=== PATIENT | female | born 1970 | race Caucasian/White ===

== ENCOUNTER 2016-05-17 21:41 | Emergency (ER) | payer BC ==
--- NOTE | 2016-05-17 22:59 | EDM.PDOC ---
ED HISTORY OF PRESENT ILLNESS - General Chief Complaint: Respiratory Problem Stated Complaint: COUGH SOB Time Seen by Provider: 05/17/16 22:26 Source of Information: Reports: Patient, RN notes reviewed History Limitations: Reports: No limitations - History of Present Illness INITIAL COMMENTS - FREE TEXT/NARRATIVE: The patient states that she has had a cough productive of yellowish sputum, with possible wheezing, since 05/05/2016. She developed dyspnea yesterday, worse today, along with dyspnea on exertion. She has had nausea, but no vomiting, constipation, or diarrhea. No recent fever. Her chest is sore when she coughs. No palpitations. She reports nasal congestion, postnasal drip, and a sore throat. She is taking [id number] Tylenol Cold/sinus, which has not helped. No prior similar symptoms. She was seen by her PCP, Marilee Torres, on 05/12/2016. No tests were performed , however, the patient was diagnosed with "flu" and prescribed doxycycline 100 mg BID along with a codeine cough syrup. This did not help, therefore she was seen again in the clinic on 05/13/2016. Again, no tests were performed, but she states that she was given an injection of some medicine, likely a steroid, and prescribed Ventolin MDI, that she has been taking every 4-6 hours. - Related Data Allergies/ADRs: Allergies Allergy/AdvReac Type Severity Reaction Status Date / Time No Known Allergies Allergy Verified 04/26/15 13:58 Home Meds: Home Meds Acetaminophen [Tylenol Extra Strength] 500 mg PO TID PRN 09/29/14 [History] Aspirin [[place] Aspirin] 81 mg PO DAILY 09/29/14 [History] Clopidogrel [Plavix] 75 mg PO DAILY 09/29/14 [History] Isosorbide Mononitrate [Imdur] 30 mg PO DAILY 09/29/14 [History] Levothyroxine [Synthroid] 88 mcg PO ACBREAKFAST 09/29/14 [History] Levothyroxine [Synthroid] 100 mcg PO Q48H 09/29/14 [History] Metoprolol Tartrate 25 mg PO BID 09/29/14 [History] Nitroglycerin [Nitrostat] 0.4 mg SL ASDIRECTED PRN 09/29/14 [History] Simethicone 125 mg PO DAILY PRN 09/29/14 [History] Rosuvastatin [Crestor] 10 mg PO DAILY 04/26/15 [History] Cholecalciferol (Vitamin D3) [Vitamin D3] 3,000 units PO DAILY 05/17/16 [History ] Vitamin B 12 1,000 mcg PO DAILY 05/17/16 [History] Levofloxacin [Levaquin] 500 mg PO Q24H #4 tablet 05/18/16 [Rx] Past Medical History Cardiovascular History: Reports: CAD, High cholesterol, Hypertension Genitourinary History: Reports: Urinary incontinence Musculoskeletal History: Reports: Arthritis (lower spine) Endocrine/Metabolic History: Reports: Hypothyroidism - Past Surgical History HEENT Surgical History: Reports: LASIK (bilateral), Tonsillectomy (16 years old) Cardiovascular Surgical History: Reports: Coronary artery stent (x 1, 09/07/2014) GI Surgical History: Reports: Bariatric procedure (04/21/2016) Female Surgical History: Reports: Hysterectomy (Apr 2009), Salpingo- oophorectomy (Apr 2009), Tubal ligation Social & Family History - Tobacco Use Smoking Status *Q: Former Smoker Tobacco Use Within Last Twelve Months: No Years of Tobacco use: 30 Packs/Tins Daily: 0.5 Used Tobacco, but Quit: Yes Month Tobacco Last Used: Quit 03/02/2014 - Caffeine Use Caffeine Use: Reports: Coffee Other Caffeine Use: decaf - Alcohol Use Alcohol Use History: Yes Alcohol Use Frequency: Rarely - Recreational Drug Use Recreational Drug Use: No - Living Situation & Occupation Living situation: Reports: , with spouse, with family (Daughter and 2 grandchildren) ED ROS GENERAL - Review of Systems Review Of Systems: See Below Constitutional: Reports: no symptoms HEENT: Reports: No symptoms, Rhinitis (as per the HPI) Respiratory: Reports: Shortness of Breath (as per the HPI), Wheezing (as per the HPI), Cough (as per the HPI), Sputum (as per the HPI) Cardiovascular: Reports: Dyspnea on exertion (as per the HPI) Endocrine: Reports: no symptoms GI/Abdominal: Reports: Nausea (as per the HPI). Denies: Constipation, Diarrhea , Vomiting : Reports: no symptoms Musculoskeletal: Reports: no symptoms Skin: Reports: no symptoms Neurological: Reports: No Symptoms Hematologic/Lymphatic: Reports: no symptoms Immunologic: Reports: no symptoms ED EXAM, GENERAL - Physical Exam Exam: See Below Exam Limited By: No limitations General Appearance: alert, WD/WN, no apparent distress Eye Exam: bilateral eye: EOMI, normal inspection Ears: normal external exam, normal canal, hearing grossly normal, normal TMs Ear Exam: bilateral ear: auricle normal, canal normal, TM normal Nose: normal inspection, no blood, other (Bilateral nasal mucosal edema) Throat/Mouth: Normal inspection, Normal lips, Normal teeth, Normal gums, Normal oropharynx, Normal voice, No airway compromise Head: atraumatic, normocephalic Neck: normal inspection, supple, non-tender, full range of motion. No: lymphadenopathy (L), lymphadenopathy (R) Respiratory/Chest: no respiratory distress, no accessory muscle use, decreased breath sounds, wheezing (Throughout all lung jaramillo), prolonged expiration. No : crackles, rhonchi Cardiovascular: normal peripheral pulses, regular rate, rhythm, no edema, no gallop, no JVD, no murmur, no rub Peripheral Pulses: 4+: radial (L), radial (R) GI/Abdominal: normal bowel sounds, soft, non tender, no organomegaly, no distention, no abnormal bruit, no mass, other (Obese) Back Exam: normal inspection, full range of motion, NT Extremities: normal inspection, normal range of motion, non-tender, normal capillary refill, no pedal edema Neurological: alert, oriented, normal cognition, no motor/sensory deficits Psychiatric: normal affect Skin Exam: Warm, Dry, Intact, Normal color, No rash Lymphatic: no adenopathy Course - Vital Signs Last Recorded V/S: Last Vital Signs Temp 36.5 C 05/17/16 22:07 Pulse 85 05/18/16 03:30 Resp 17 05/18/16 03:30 BP 141/73 H 05/18/16 03:30 Pulse Ox 94 L 05/18/16 03:30 - Orders/Labs/Meds Orders: Active Orders 24 hr Category Date Time Status Ang Chest [CT] Stat Exams 05/18/16 00:52 Taken Chest 2V [CR] Stat Exams 05/17/16 22:55 Taken CULTURE BLOOD [BC] Stat Lab 05/17/16 23:10 Received CULTURE BLOOD [BC] Stat Lab 05/17/16 23:25 Results Labs: Laboratory Tests 05/17/16 05/17/16 05/17/16 Range/Units 23:10 23:10 23:10 WBC 8.35 (3.98-10.04) K/mm3 RBC 3.82 L (3.98-5.22) M/mm3 Hgb 12.1 (11.2-15.7) gm/L Hct 34.9 (34.1-44.9) % MCV 91.4 (79.4-94.8) fl MCH 31.7 (25.6-32.2) pg MCHC 34.7 (32.2-35.5) g/dl RDW Std Deviation 43.3 (36.4-46.3) fL Plt Count 304 (182-369) K/mm3 MPV 10.7 (9.4-12.3) fl Neutrophils % (Manual) 63 H (40-60) % Band Neutrophils % 6 (0-10) % Lymphocytes % (Manual) 15 L (20-40) % Atypical Lymphs % 2 % Monocytes % (Manual) 5 (2-10) % Eosinophils % (Manual) 9 H (0.7-5.8) % Basophils % (Manual) 0 L (0.1-1.2) Toxic Granulation Few Platelet Estimate Adequate Plt Morphology Comment Normal Polychromasia Few Anisocytosis 1+ slight Spherocytes Few Stomatocytes Few Acanthocytes (Spur) Few Rouleaux Few RBC Morph Comment Not Reportable PT 11.8 (8.0-13.0) SECONDS INR 1.08 APTT 28 (22-36) SECONDS D-Dimer, Quantitative 1.19 H (0.19-0.59) mg/L Sodium 137 (136-145) mEq/L Potassium 3.3 L (3.5-5.1) mEq/L Chloride 99 (98-107) mEq/L Carbon Dioxide 26 (21-32) mEq/L Anion Gap 15.3 H (5-15) BUN 6 L (7-18) mg/dL Creatinine 0.5 L (0.55-1.02) mg/dL Est Cr Clr Drug Dosing 138.81 mL/min Estimated GFR (MDRD) > 60 (>60) mL/min BUN/Creatinine Ratio 12.0 L (14-18) Glucose 106 (74-106) mg/dL Calcium 9.8 (8.5-10.1) mg/dL Total Bilirubin 0.9 (0.2-1.0) mg/dL AST 15 (15-37) U/L ALT 23 (14-59) U/L Alkaline Phosphatase 110 (46-116) U/L C-Reactive Protein 2.0 H* (<1.0) mg/dL B-Natriuretic Peptide (0-100) pg/mL Total Protein 7.3 (6.4-8.2) g/dl Albumin 4.3 (3.4-5.0) g/dl Globulin 3.0 gm/dL Albumin/Globulin Ratio 1.4 (1-2) 05/17/16 Range/Units 23:10 WBC (3.98-10.04) K/mm3 RBC (3.98-5.22) M/mm3 Hgb (11.2-15.7) gm/L Hct (34.1-44.9) % MCV (79.4-94.8) fl MCH (25.6-32.2) pg MCHC (32.2-35.5) g/dl RDW Std Deviation (36.4-46.3) fL Plt Count (182-369) K/mm3 MPV (9.4-12.3) fl Neutrophils % (Manual) (40-60) % Band Neutrophils % (0-10) % Lymphocytes % (Manual) (20-40) % Atypical Lymphs % % Monocytes % (Manual) (2-10) % Eosinophils % (Manual) (0.7-5.8) % Basophils % (Manual) (0.1-1.2) Toxic Granulation Platelet Estimate Plt Morphology Comment Polychromasia Anisocytosis Spherocytes Stomatocytes Acanthocytes (Spur) Rouleaux RBC Morph Comment PT (8.0-13.0) SECONDS INR APTT (22-36) SECONDS D-Dimer, Quantitative (0.19-0.59) mg/L Sodium (136-145) mEq/L Potassium (3.5-5.1) mEq/L Chloride (98-107) mEq/L Carbon Dioxide (21-32) mEq/L Anion Gap (5-15) BUN (7-18) mg/dL Creatinine (0.55-1.02) mg/dL Est Cr Clr Drug Dosing mL/min Estimated GFR (MDRD) (>60) mL/min BUN/Creatinine Ratio (14-18) Glucose (74-106) mg/dL Calcium (8.5-10.1) mg/dL Total Bilirubin (0.2-1.0) mg/dL AST (15-37) U/L ALT (14-59) U/L Alkaline Phosphatase (46-116) U/L C-Reactive Protein (<1.0) mg/dL B-Natriuretic Peptide < 15 (0-100) pg/mL Total Protein (6.4-8.2) g/dl Albumin (3.4-5.0) g/dl Globulin gm/dL Albumin/Globulin Ratio (1-2) Meds: Medications Discontinued Medications Generic Name Dose Route Start Last Admin Trade Name Freq PRN Reason Stop Dose Admin Sodium Chloride 1,000 mls @ 150 mls/hr 05/18/16 01:00 05/18/16 01:47 Normal Saline IV 150 mls/hr ASDIRECTED LISA Administration Sodium Chloride 100 mls @ 60 mls/hr 05/18/16 01:00 05/18/16 01:17 Normal Saline IV 60 mls/hr ASDIRECTED LISA Administration Ibuprofen 600 mg 05/18/16 03:38 05/18/16 03:44 Motrin PO 05/18/16 03:39 Not Given ONETIME ONE Iopamidol 100 ml 05/18/16 00:55 05/18/16 01:16 Isovue-370 (76%) IVPUSH 05/18/16 00:56 100 ml ONETIME ONE Administration Iopamidol 50 ml 05/18/16 00:55 05/18/16 01:16 Isovue-370 (76%) IVPUSH 05/18/16 00:56 30 ml ONETIME ONE Administration Levofloxacin 750 mg 05/18/16 03:37 05/18/16 03:44 Levaquin PO 05/18/16 03:38 750 mg ONETIME STA Administration Sodium Chloride 10 ml 05/18/16 00:55 05/18/16 01:16 Saline Flush FLUSH 05/18/16 00:56 10 ml ONETIME ONE Administration - Radiology Interpretation Free Text/Narrative:: Two-view chest radiograph appears to be grossly normal. Cardiac silhouette is within normal limits. No pulmonary vascular congestion. No pleural effusions. No focal infiltrate. No pneumothorax. Formal read per the Radiologist pending. CT angiogram of the chest is read by [facility] as: 1. No central or proximal segmental pulmonary embolus. Cannot evaluate the more distal branches. Please see comment above. 2. Dense atherosclerotic calcification of the LAD, and atherosclerotic calcification of the mitral valve annulus, significant given patient's age. 3. Findings consistent with multifocal bronchopneumonia. 4. Mediastinal and bilateral hilar lymphadenopathy. - Re-Assessments/Exams Free Text/Narrative Re-Assessment/Exam: 05/18/16 00:56 Test results discussed with the patient. The patient's workup is unremarkable, with the exception of a D-dimer elevated at 1.19. I cannot rule out a PE as the cause of many of the patient's symptoms, and I am therefore recommending a CT angiogram of the chest. The patient is agreeable. 05/18/16 03:48 CT angiogram results discussed with the patient. The CT scan has findings consistent with multifocal bronchopneumonia. Unfortunately, the patient does not have clinical features consistent with pneumonia, such as an elevated WBC count or elevated CRP. This means that the tree in bud infiltrates seen on the CT scan MAY NOT be due to pneumonia. If that is the case, we would expect that the patient does not get better despite appropriate antibiotic treatment. Alternatively, the patient could get better despite treatment. It is for this reason that I am recommending that the patient have a followup CT scan of her chest in 4-6 weeks, to make sure that the pulmonary abnormalities have resolved. If they have not, the patient would require bronchoscopy. For today' s purposes, I will start the patient on Levaquin 750 mg daily for 5 days. Also mentioned on the CT scan is dense atherosclerotic calcification of the LAD and atherosclerotic ossification of the mitral valve annulus. The patient herself was not aware of that, however, the patient has known coronary artery disease, and her [employer] may be aware of the atherosclerotic changes. I am recommending that the patient followup with her [employer] to discuss this. The patient may benefit from annual echocardiograms. Departure - Departure Time of Disposition: 03:52 Disposition: Home, Self-Care 01 Condition: fair Clinical Impression: Bronchopneumonia Prescriptions: Levofloxacin [Levaquin] 500 mg PO Q24H #4 tablet Instructions: Community-Acquired Pneumonia, Adult, [id number] Referrals: Marilee Torres PA-C [Primary Care Provider] - Forms: ED Department Discharge Additional Instructions: You were seen in the emergency room tonight for a cough, wheezing, and shortness of breath at rest and with exertion. Workup in the ER included blood work, an influenza swab, a chest x-ray, and a CT angiogram of your chest. Your blood work was normal, however, the CT angiogram of your chest indicates that you have multifocal bronchopneumonia. You have been started on the antibiotic Levaquin. Take one tablet every day, as prescribed. Finish the entire prescription, unless told otherwise by your doctor. The CT scan also indicated dense arthrosclerotic calcification of the LAD ( coronary artery) and atherosclerotic calcification of the mitral valve annulus. Please discuss these findings with your [employer]. We advise a repeat CT scan of your chest in 4-6 weeks to make sure that the lung findings have resolved. If any other problems, please do not hesitate to return to the ER. - My Orders Last 24 Hours: My Active Orders 05/17/16 22:55 Chest 2V [CR] Stat 05/17/16 23:10 CULTURE BLOOD [BC] Stat 05/17/16 23:25 CULTURE BLOOD [BC] Stat 05/18/16 00:52 Ang Chest [CT] Stat - Assessment/Plan Last 24 Hours: My Active Orders 05/17/16 22:55 Chest 2V [CR] Stat 05/17/16 23:10 CULTURE BLOOD [BC] Stat 05/17/16 23:25 CULTURE BLOOD [BC] Stat 05/18/16 00:52 Ang Chest [CT] Stat
[2016-05-18] MEDS ORDERED: Iopamidol 755 Mg/ML 100 ML Bottle IVPUSH ONE (00:55)
[2016-05-18] MEDS ORDERED: Sodium Chloride 0.9% 10 ML Syringe FLUSH ONE (00:55)
[2016-05-18] MEDS ORDERED: Iopamidol 755 MG/ML 50 ML Bottle IVPUSH ONE (00:55)
[2016-05-18] MEDS ORDERED: Sodium Chloride 0.9% 1,000 ML IV SCH (01:00)
[2016-05-18] MEDS ORDERED: Sodium Chloride 0.9% 100 ML IV SCH (01:00)
[2016-05-18] MEDS ORDERED: Levofloxacin 750 MG Tab PO STA (03:37)
[2016-05-18] MEDS ORDERED: Ibuprofen 600 MG Tab PO ONE (03:38)
[2016-05-18 05:52] VITALS: BP 141/73
--- NOTE | 2016-05-19 08:00 | CR ---
Chest: Two views of the chest were obtained. Comparison: Previous chest x-ray 04/26/15. Heart size and mediastinum are normal. Lungs are clear. Degenerative disc space narrowing noted throughout the spine. Bony structures show nothing acute. Impression: 1. Incidental findings. Nothing acute identified on two-view chest x-ray. Diagnostic code #2
--- NOTE | 2016-05-19 08:11 | CT ---
CT chest Technique: Multiple axial sections through the chest were obtained. Intravenous contrast was utilized. Study has been performed as a pulmonary angiogram protocol. Delayed images also obtained through the pulmonary arteries. Comparison: Previous chest x-ray performed on 05/17/16. Findings: Pulmonary arteries are suboptimally opacified. No filling defects seen within the main or segmental branches. Smaller subsegmental pulmonary emboli could be missed. Mildly prominent lymph nodes seen within the mediastinum and within both hilar regions. Some of the lymph nodes appear calcified. Findings are felt to be residual from previous granulomatous exposure. Significant coronary artery calcification is seen. Mitral annulus calcification is also noted. Small portion of visualized upper abdominal structures show previous abdominal surgery within the stomach. Lung window setting show mild interstitial change within the left lung most prominent within the left lung base. No alveolar type densities are seen. Minimal scarring or atelectasis seen within the right middle lobe. Bone window settings appear within normal limits for the patient's age. Impression: 1. Suboptimal opacifications of the pulmonary arteries. No pulmonary embolism seen within the segmental or main pulmonary arteries. Smaller subsegmental pulmonary embolism could be missed. 2. Mildly prominent lymph nodes within the mediastinum and hilar regions some showing calcification. Findings felt compatible with previous granulomatous exposure. 3. Coronary artery calcification which is abnormal in amount for the patient's age. Incidental mitral annulus calcification also noted. 4. Interstitial changes most prominent within the left lung base most likely due to multifocal bronchopneumonia. Please correlate if patient has infectious symptoms. Agree with preliminary report issued by [facility] (preliminary [facility] report generated on 05/18/16, 3:06 AM Central Time) Diagnostic code #3
== END 2016-05-18 03:30 | disposition home or self-care (01) ==
LOC: JD.ED 21:41 → SUPCPDRO 21:41 → JD.ED 05-18 03:30
DX: J18.0 Bronchopneumonia, unspecified organism (principal); R94.8 Abnormal results of function studies of other organs and systems; I25.10 Atherosclerotic heart disease of native coronary artery without angina pectoris; E78.00 Pure hypercholesterolemia, unspecified; I10 Essential (primary) hypertension; E03.9 Hypothyroidism, unspecified; Z87.891 Personal history of nicotine dependence; Z79.82 Long term (current) use of aspirin; Z79.899 Other long term (current) drug therapy; Z95.5 Presence of coronary angioplasty implant and graft
CPT/HCPCS: 36415; 71020; 71275; 80053; 83880; 85025; 85379; 85610; 85730; 86140; 87040; 87804; A9270; J7030; J7040; J7050; Q9967; 96360; 96361; 99284; 99285-25

== ENCOUNTER 2016-05-23 17:06 | Emergency (ER) | payer BC ==
[2016-05-23 17:37] VITALS: BP 137/76
--- NOTE | 2016-05-23 19:23 | EDM.PDOC ---
ED HISTORY OF PRESENT ILLNESS - General Chief Complaint: Respiratory Problem Stated Complaint: SENT BY [facility] UNABLE TO START IV Time Seen by Provider: 05/23/16 18:57 Source of Information: Reports: Patient, RN notes reviewed - History of Present Illness INITIAL COMMENTS - FREE TEXT/NARRATIVE: 46 year old female sent over from clinic with concern for DVT, unable to get an IV at the clinic so sent here for possible pul angiogram. She has been ill with a productive cough for several wks, evaluated here 6 days ago, had a normal CXR but CT pul angio showed L interstitial findings consistent with bronchial pneumonia. Has been on levaquin for the last 5 days. Cough is still productive, deep breathing makes her cough. Some continued dyspnea. No recent fever or chills. She had a sore throat but that is gone. She does not have leg pain, swelling, or pain with deep breathing. No major risk factors for DVT at this time. - Related Data Allergies/ADRs: Allergies Allergy/AdvReac Type Severity Reaction Status Date / Time No Known Allergies Allergy Verified 05/23/16 17:31 Home Meds: Home Meds Acetaminophen [Tylenol Extra Strength] 500 mg PO TID PRN 09/29/14 [History] Aspirin [[place] Aspirin] 81 mg PO DAILY 09/29/14 [History] Clopidogrel [Plavix] 75 mg PO DAILY 09/29/14 [History] Isosorbide Mononitrate [Imdur] 30 mg PO DAILY 09/29/14 [History] Levothyroxine [Synthroid] 88 mcg PO ACBREAKFAST 09/29/14 [History] Levothyroxine [Synthroid] 100 mcg PO Q48H 09/29/14 [History] Metoprolol Tartrate 25 mg PO BID 09/29/14 [History] Nitroglycerin [Nitrostat] 0.4 mg SL ASDIRECTED PRN 09/29/14 [History] Simethicone 125 mg PO DAILY PRN 09/29/14 [History] Rosuvastatin [Crestor] 10 mg PO DAILY 04/26/15 [History] Cholecalciferol (Vitamin D3) [Vitamin D3] 3,000 units PO DAILY 05/17/16 [History ] Vitamin B 12 1,000 mcg PO DAILY 05/17/16 [History] Levofloxacin [Levaquin] 500 mg PO Q24H #4 tablet 05/18/16 [Rx] Levofloxacin [Levaquin] 500 mg PO Q24H #7 tablet 05/23/16 [Rx] Past Medical History Cardiovascular History: Reports: CAD, High cholesterol, Hypertension Respiratory History: Reports: Other (see below) Other Respiratory History: bronchial pneumonia Genitourinary History: Reports: Urinary incontinence Musculoskeletal History: Reports: Arthritis Endocrine/Metabolic History: Reports: Hypothyroidism - Past Surgical History HEENT Surgical History: Reports: LASIK, Tonsillectomy Cardiovascular Surgical History: Reports: Coronary artery stent GI Surgical History: Reports: Bariatric procedure Female Surgical History: Reports: Hysterectomy, Salpingo-oophorectomy, Tubal ligation Social & Family History - Tobacco Use Smoking Status *Q: Never Smoker Years of Tobacco use: 30 Packs/Tins Daily: 0.5 Used Tobacco, but Quit: Yes Month Tobacco Last Used: Quit 03/02/2014 - Caffeine Use Caffeine Use: Reports: Coffee Other Caffeine Use: decaf - Recreational Drug Use Recreational Drug Use: No - Living Situation & Occupation Living situation: Reports: , with spouse, with family (Daughter and 2 grandchildren) ED ROS GENERAL - Review of Systems Review Of Systems: See Below Constitutional: Reports: fever (perhaps many days ago. ), chills (many days ago) HEENT: Reports: Throat pain (gone) Respiratory: Reports: Shortness of Breath, Cough, Sputum. Denies: Pleuritic Chest Pain, Hemoptysis Cardiovascular: Reports: Chest pain (wuith coughing) GI/Abdominal: Denies: Abdominal pain, Nausea, Vomiting Musculoskeletal: Reports: no symptoms Skin: Reports: no symptoms Neurological: Reports: No Symptoms ED EXAM, GENERAL - Physical Exam Exam: See Below General Appearance: alert, no apparent distress, other (frequent nonprod cough) Eye Exam: bilateral eye: PERRL Throat/Mouth: Normal inspection Head: atraumatic. No: facial swelling Neck: supple, full range of motion. No: tender midline Respiratory/Chest: no respiratory distress, lungs clear, normal breath sounds, chest non-tender Cardiovascular: regular rate, rhythm GI/Abdominal: soft, non tender Back Exam: vertebral tenderness (mid thoracic back and low mid and L lower back , no bruising or swelling visible). No: CVA tenderness (L), CVA tenderness (R) Neurological: no motor/sensory deficits Skin Exam: Warm, Dry, Normal color. No: Erythema Course - Vital Signs Last Recorded V/S: Last Vital Signs Temp 97.9 F 05/23/16 17:31 Pulse 83 05/23/16 17:31 Resp 20 05/23/16 17:31 BP 137/76 05/23/16 17:31 Pulse Ox 95 05/23/16 17:31 - Orders/Labs/Meds Orders: Active Orders 24 hr Category Date Time Status CXR [Chest 2V] [CR] Stat Exams 05/23/16 19:13 Taken Labs: Laboratory Tests 05/23/16 Range/Units 19:08 D-Dimer, Quantitative 1.02 H (0.19-0.59) mg/L - Re-Assessments/Exams Free Text/Narrative Re-Assessment/Exam: 05/23/16 19:57 WBC done at [facility] today was in the 7,000 range, CXR today shows coarse perihilar markings, especially R lower lung field. D dimer today is 1.02. D Dimer 6 days ago was 1.19. CT pul angio than was neg for PE, positive for bronchial pneumonia. I have gone over these findings with patient. She does not have leg swelling, pain, other risk factors or clinical findings for PE at this time. She has clinical evidence today and hx of bronchial pneumonia. She does not need a CT today to R/O PE. Patient is in agreement with that. she has had only 5 days of levaquin, discharge instr. as documented. Departure - Departure Time of Disposition: 19:55 Disposition: Home, Self-Care 01 Condition: fair Clinical Impression: Bronchial pneumonia Prescriptions: Levofloxacin [Levaquin] 500 mg PO Q24H #7 tablet Instructions: Community-Acquired Pneumonia, Adult, [id number] Referrals: Marilee Torres PA-C [Primary Care Provider] - Forms: ED Department Discharge Additional Instructions: continue albuteral inhaler q 4 to 6 hr as needed, vaporizer or steam as needed, levaquin 500 mt daily for another 7 days, symptoms should gradually start getting better over the next 3 to 5 days, follow up clinic in about 5 to 7 days if not significantly better, return to ED as needed. - My Orders Last 24 Hours: My Active Orders 05/23/16 19:13 CXR [Chest 2V] [CR] Stat - Assessment/Plan Last 24 Hours: My Active Orders 05/23/16 19:13 CXR [Chest 2V] [CR] Stat
--- NOTE | 2016-05-26 08:34 | CR ---
Chest: Two views of the chest were obtained. Comparison: Previous chest x-ray of 05/17/16. Heart size and mediastinum are within normal limits. Lungs are clear with no acute infiltrates. Minimal disc space narrowing is scattered within the spine. Impression: 1. Nothing acute is seen on two-view chest x-ray. Diagnostic code #2
== END 2016-05-23 20:15 | disposition home or self-care (01) ==
LOC: JD.ED 17:06
DX: J18.0 Bronchopneumonia, unspecified organism (principal); Z79.899 Other long term (current) drug therapy; E03.9 Hypothyroidism, unspecified
CPT/HCPCS: 36415; 71020; 71020-26; 85379; 99283; 99284

== ENCOUNTER 2018-11-10 09:25 | Emergency (ER) | payer BC ==
--- NOTE | 2018-11-10 10:46 | EDM.PDOC ---
ED HPI GENERAL MEDICAL PROBLEM - General Chief Complaint: Respiratory Problem Stated Complaint: COUGHING,KIDNEY PAIN,SWEATING Time Seen by Provider: 11/10/18 09:45 Source of Information: Reports: Patient History Limitations: Reports: No Limitations - History of Present Illness INITIAL COMMENTS - FREE TEXT/NARRATIVE: The patient presents with a cough. This all started a couple days ago with a sore throat. The sore throat is better. She developed some congestion and that move to her chest. She has a cough. She has some congestion in her chest. She denies chest pain or shortness of breath. She has no fever or chills. She did have some ear pain to the left year a week ago but that is better now. She has some bilateral flank pain today that raps around to her abdomen. She has no nausea or vomiting. She has no dysuria or hematuria. She went to the walk on clinic and she was sent over here for evaluation. She did have an PA 3 years ago. Onset: Gradual Duration: Day(s): Severity: Mild Improves with: Reports: None Worsens with: Reports: None Associated Symptoms: Reports: Cough. Denies: Chest Pain, Fever/Chills, Headaches, Nausea/Vomiting, Shortness of Breath - Related Data Allergies Allergy/AdvReac Type Severity Reaction Status Date / Time No Known Allergies Allergy Verified 11/10/18 09:40 Home Meds: Home Meds Aspirin [[place] Aspirin] 81 mg PO DAILY 09/29/14 [History] Levothyroxine [Synthroid] 150 mcg PO DAILY 09/29/14 [History] Metoprolol Tartrate 25 mg PO BID 09/29/14 [History] Rosuvastatin [Crestor] 10 mg PO DAILY 04/26/15 [History] Calcium Carbonate [Calcium] 500 mg PO BID 01/18/18 [History] Eszopiclone [Lunesta] 2 mg PO DAILY 01/18/18 [History] L.acidoph,Paracasei, B.lactis [Probiotic] 1 tab PO DAILY 01/18/18 [History] Multivitamin [Multivitamins] 1 tab PO DAILY 01/18/18 [History] Omeprazole 20 mg PO DAILY PRN 01/18/18 [History] Ondansetron [Zofran ODT] 4 mg PO Q6H PRN 01/18/18 [History] Lactulose 30 ml PO BID 11/10/18 [History] Past Medical History HEENT History: Reports: Impaired Vision Other HEENT History: wears eyeglasses Cardiovascular History: Reports: CAD, High Cholesterol, Hypertension, PA Respiratory History: Reports: Other (See Below) Other Respiratory History: bronchial pneumonia Gastrointestinal History: Reports: Other (See Below) Other Gastrointestinal History: 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 Genitourinary History: Reports: Pyelonephritis, Urinary Incontinence, UTI, Recurrent NURSE FIRST ASSIST History: Reports: Musculoskeletal History: Reports: Arthritis Neurological History: Reports: Vertigo Endocrine/Metabolic History: Reports: Hypothyroidism Hematologic History: Reports: Anemia - Past Surgical History HEENT Surgical History: Reports: LASIK, Tonsillectomy Cardiovascular Surgical History: Reports: Coronary Artery Stent GI Surgical History: Reports: Bariatric Procedure, Cholecystectomy Female Surgical History: Reports: Hysterectomy, Salpingo-Oophorectomy, Tubal Ligation Social & Family History - Family History Family Medical History: Noncontributory - Tobacco Use Smoking Status *Q: Former Smoker Years of Tobacco use: 30 Used Tobacco, but Quit: Yes Month/Year Tobacco Last Used: 2014 Second Hand Smoke Exposure: Yes - Caffeine Use Caffeine Use: Reports: None Other Caffeine Use: decaf - Recreational Drug Use Recreational Drug Use: No - Living Situation & Occupation Living situation: Reports: , with Spouse, with Family ED ROS GENERAL - Review of Systems Review Of Systems: See Below Constitutional: Reports: No Symptoms HEENT: Reports: Other (Sore throat and congestion) Respiratory: Reports: Cough. Denies: Shortness of Breath Cardiovascular: Reports: No Symptoms Endocrine: Reports: No Symptoms GI/Abdominal: Reports: No Symptoms : Reports: No Symptoms Musculoskeletal: Reports: No Symptoms ED EXAM, GENERAL - Physical Exam Exam: See Below Exam Limited By: No Limitations General Appearance: Alert, No Apparent Distress Ears: Normal External Exam, Normal Canal, Normal TMs Nose: Normal Inspection Throat/Mouth: Normal Inspection Head: Atraumatic, Normocephalic Neck: Normal Inspection, Supple, Non-Tender Respiratory/Chest: No Respiratory Distress, Lungs Clear, Normal Breath Sounds Cardiovascular: Regular Rate, Rhythm, No Edema, No Murmur GI/Abdominal: Soft, Non-Tender, No Organomegaly, No Mass Back Exam: Normal Inspection Extremities: Normal Inspection Course - Vital Signs Last Recorded V/S: Last Vital Signs Temp 97.5 F 09/11/19 09:35 Pulse 60 11/10/18 09:35 Resp 18 11/10/18 09:35 BP 139/85 11/10/18 09:35 Pulse Ox 96 11/10/18 09:35 - Orders/Labs/Meds Orders: Active Orders 24 hr Category Date Time Status CXR [Chest 2V] [CR] Stat Exams 11/10/18 10:09 Taken Labs: Laboratory Tests 11/10/18 Range/Units 09:40 Urine Color Light yellow (Yellow) Urine Appearance Clear (Clear) Urine pH 7.0 (5.0-8.0) Ur Specific [place] 1.015 (1.005-1.030) Urine Protein Negative (Negative) Urine Glucose (UA) Negative (Negative) Urine Ketones Negative (Negative) Urine Occult Blood Negative (Negative) Urine Nitrite Negative (Negative) Urine Bilirubin Negative (Negative) Urine Urobilinogen 0.2 (0.2-1.0) Ur Leukocyte Esterase Negative (Negative) Urine RBC 0-5 (0-5) /hpf Urine WBC 0-5 (0-5) /hpf Ur Epithelial Cells 0-5 (0-5) /hpf Urine Bacteria Not seen (FEW) /hpf Urine Mucus Not seen (FEW) /hpf - Re-Assessments/Exams Free Text/Narrative Re-Assessment/Exam: 11/10/18 10:45 I ordered a UA and CXR. The CXR looks good. Her UA shows no UTI. I feel this is a viral upper respiratory infection. I will have her do symptomatic care. Departure - Departure Time of Disposition: 10:50 Disposition: Home, Self-Care 01 Condition: Good Clinical Impression: Viral upper respiratory infection - Discharge Information *PRESCRIPTION DRUG MONITORING PROGRAM REVIEWED*: No *COPY OF PRESCRIPTION DRUG MONITORING REPORT IN PATIENT ADA: No Referrals: Marilee Torres PA-C [Primary Care Provider] - 1 Week Forms: ED Department Discharge Additional Instructions: Take tylenol or motrin for any fever. Try some over the counter mucinex or something like that for the cough. Drink plenty of fluids. Please return if you are worse. - My Orders Last 24 Hours: My Active Orders 11/10/18 10:09 CXR [Chest 2V] [CR] Stat - Assessment/Plan Last 24 Hours: My Active Orders 11/10/18 10:09 CXR [Chest 2V] [CR] Stat
[2018-11-10 11:05] VITALS: BP 121/71; PULSE 54
== END 2018-11-10 11:05 | disposition home or self-care (01) ==
LOC: JD.ED 09:25
DX: J06.9 Acute upper respiratory infection, unspecified (principal); I10 Essential (primary) hypertension; I25.2 Old myocardial infarction; E03.9 Hypothyroidism, unspecified; Z79.899 Other long term (current) drug therapy; Z98.84 Bariatric surgery status; Z79.82 Long term (current) use of aspirin; Z86.2 Personal history of diseases of the blood and blood-forming organs and certain disorders involving the immune mechanism; Z87.891 Personal history of nicotine dependence
CPT/HCPCS: 71046; 81001; 99284-25

== ENCOUNTER 2022-01-06 14:48 | Emergency (ER) | payer OTHER ==
[2022-01-06 15:08] VITALS: BP 158/88; PULSE 84
== END 2022-01-06 18:00 | disposition home or self-care (01) ==
LOC: JD.ED 14:48
DX: S93.492A Sprain of other ligament of left ankle, initial encounter (principal); I25.10 Atherosclerotic heart disease of native coronary artery without angina pectoris; E78.00 Pure hypercholesterolemia, unspecified; I10 Essential (primary) hypertension; F17.210 Nicotine dependence, cigarettes, uncomplicated; Z79.899 Other long term (current) drug therapy; Z79.82 Long term (current) use of aspirin; Z90.49 Acquired absence of other specified parts of digestive tract; Z90.710 Acquired absence of both cervix and uterus
CPT/HCPCS: 29515; 73700-26-LT; 73700-LT; 99283